=== PATIENT | female | born 1950 | race Caucasian/White ===

== ENCOUNTER 2024-12-18 06:21 | Day surgery (SDC) | payer MEDICARE, OTHER, SELFPAY ==
[2024-12-05 13:39] VITALS: BMI 33.0
[2024-12-18] MEDS: NORMOSOL-R/PLASMALYTE-A 1000 IV (08:19)
[2024-12-18 08:20] VITALS: BMI 33.0
[2024-12-18] MEDS: TYLENOL 1000 MG PO (08:22)
[2024-12-18 08:27] VITALS: BP 142/72
[2024-12-18 10:23] VITALS: BP 161/69
[2024-12-18 10:30] VITALS: BP 148/69
[2024-12-18 10:45] VITALS: BP 144/58
[2024-12-18 11:00] VITALS: BP 156/66
== END 2024-12-18 11:30 | disposition home or self-care (01) ==
LOC: SDS 06:21
PROVIDERS: ATTENDING PHYSICIAN Surgery; FAMILY PHYSICIAN Family Medicine
DX: K64.3 Fourth degree hemorrhoids (principal)
CPT/HCPCS: 46260; 88304